=== PATIENT | male | born 1980 | race Caucasian/White ===

== ENCOUNTER 2022-09-18 09:39 | Outpatient (OUT) | payer OTHER, SELFPAY ==
[2022-09-18 22:37] LABS: Thyroid Stimulating Hormone 3.495 uIU/mL (0.358-3.740)
[2022-09-18 23:50] LABS: Free T4 0.79 ng/dL (0.76-1.46)
[2022-09-26 14:15] LABS: Triiodothyronine (T3) 90 ng/dL (71-180)
== END 2022-09-18 09:40 ==
PROVIDERS: PCP Internal Medicine; Visit Provider Internal Medicine
DX: Z00.00 Encounter for general adult medical examination without abnormal findings (principal)
CPT/HCPCS: 36415; 84439; 84443; 84480

== ENCOUNTER 2022-10-15 19:13 | Emergency (ER) | payer OTHER, SELFPAY ==
[2022-10-15 19:20] VITALS: BP 119/86; PULSE 75; RESP 16; TEMP 36.6; O2SAT 98; BMI 28.5
--- NOTE | 2022-10-15 19:41 | ED_ITS ---
HPI - Trauma General Chief Complaint: Extremity Injury, Upper Stated Complaint: nail through finger right hand Time Seen by Provider: 10/15/22 19:39 Source: patient Mode of arrival: walk-in History of Present Illness HPI narrative: accidentally shot a large nail through the middle and ring fingers of the right hand just [employer]IST[employer]. He tried to use pliers to remove the nail without success. His tetanus is not up to date. Related Data Home Medications Medication Instructions Recorded Confirmed amlodipine 5 mg tablet 5 mg PO QDAY 10/15/22 10/15/22 Previous Rx's Medication Instructions Recorded cephalexin 500 mg capsule 500 mg PO QID 7 days #28 caps 10/15/22 ciprofloxacin HCl 500 mg tablet 500 mg PO BID #14 tabs 10/15/22 (Cipro) Allergies Allergy/AdvReac Type Severity Reaction Status Date / Time No Known Drug Allergies Allergy Verified 10/15/22 19:25 PFSH PFS Social History Smoking status: Never smoker Exam Narrative Exam Narrative: Nurses note and vital signs reviewed and patient is not hypoxic. afebrile General: The patient appears well and in no apparent distress. Patient is resting comfortably on cart. GCS = 15. Skin: Warm, dry, no pallor noted. Head: Normocephalic, atraumatic Eyes: PERRLA, EOMI Cardiovascular: normal peripheral perfusion Respiratory: Patient is in no distress, no accessory muscle use, lungs are clear to auscultation, no wheezing, rales or rhonchi Musculoskeletal: nail through the right middle figner and then enters into the radial aspect of the right middle finger and does not exit on the ulnar side. no additional sign of long bone fracture Neurological: A&O x4, normal equal bobbin loose end finder strength, normal finger to nose, normal speech, normal coordination, normal motor, normal sensory. Psychiatric: Cooperative Constitutional Vital Signs - 24 hr 10/15/22 19:20 Temperature 97.9 F Pulse Rate [Monitor] 75 Respiratory Rate 16 Blood Pressure [Left Arm] 119/86 H Pulse Oximetry 98 Oxygen Delivery Method Room Air Course Vital Signs Vital signs: Vital Signs Temperature 97.9 F 10/15/22 19:20 Pulse Rate 75 10/15/22 19:20 Respiratory Rate 16 10/15/22 19:20 Blood Pressure 119/86 H 10/15/22 19:20 Pulse Oximetry 98 10/15/22 19:20 Oxygen Delivery Method Room Air 10/15/22 19:20 Temperature 97.9 F 10/15/22 19:20 Pulse Rate 75 10/15/22 19:20 Respiratory Rate 16 10/15/22 19:20 Blood Pressure 119/86 H 10/15/22 19:20 Pulse Oximetry 98 10/15/22 19:20 Oxygen Delivery Method Room Air 10/15/22 19:20 MDM - Trauma MDM Narrative Medical decision making narrative: patient given oral pain meds and oral antibiotics. Xrays of the right hand obtained. Tetanus updated. I reviewed the xrays and informed the patient of the findings. he elected to have digital block of both fingers before attempted removal. see procedure note above regarding digital block of the right 3rd and 4th fingers I then removed the nail from the patient's fingers using a pair of pliers and he tolerated the procedure well. Follow up xrays obtained. The patient was discharged home with prescriptions for cipro and keflex. he declined offer for pain med prescriptions. Imaging Data xr hand: Radiologist's impression: Patient Name: GERARDO LUGO MRN: [id number] date: 1980 Sex: M Assigned Patient Location: ER Current Patient Location: ER Accession/Order Number: [id number] Exam Date: 10/15/2022 19:58 Report Date: 10/15/2022 20:17 At the request of: TEODORA JIMENEZ Procedure: XR hand RT min 3V IMAGES REVIEWED: XR hand RT min 3V COMPARISON: None available. CLINICAL INDICATION: foreign body right hand/fingers FINDINGS/IMPRESSION: Metallic nail retained foreign body extending transversely through the volar third digit soft tissues at the level of the neck of the third middle phalanx from radial to ulnar as well as extending into the distal aspect of the fourth digit soft tissues, with the distal tip of the metallic nail retained foreign body possibly lodged within the fourth distal phalanx bone. On the lateral view the nail abuts the volar cortex of the neck of the third middle phalanx without radiographic evidence of acute fracture. Electronically authenticated by: ALBERTO DORSEY Date: 10/15/2022 20:17 Discharge Plan Discharge Chief Complaint: Extremity Injury, Upper Clinical Impression: Foreign body finger Patient Disposition: Home, Self-Care Time of Disposition Decision: 21:19 Prescriptions / Home Meds: New ciprofloxacin HCl [Cipro] 500 mg tablet 500 mg PO BID Qty: 14 0RF cephalexin 500 mg capsule 500 mg PO QID 7 Days Qty: 28 0RF No Action amlodipine 5 mg tablet 5 mg PO QDAY Instructions: Soft Tissue Foreign Body (ED) Stand Alone Forms: Portal Instructions Referrals: Brian Skelton DO [Primary Care Provider] - 1 week Procedures ED Nerve Block Nerve Block Nerve Block 1: Additional comments: digital block performed at the base of the right 3rd digit and right 4th digit in order to anesthetize the fingers that I could remove the foreign body. Approximately one mL was injected in each of the four sites, two on the volar surface and two on the palmar surface at the base of the right 3rd finger and the right 4th finger.
--- NOTE | 2022-10-15 19:58 | PC.NURSE ---
patient has puncture injury to right hand 2nd and 3rd finger. patient was using a nail gun and shot a 4 inch nail into lateral side of fingers approx through DIP knuckle and lateral pad of 3rd finger. patient reports no blood. came in 20minutes after it happened. patient denies needs at this time. appears to be uncomfortable. patient medicated with2 percocet oral. aware he is awaiting radiology. no color change to affected fingers, nail nell. normal temperature distal to injury.
[2022-10-15] MEDS: CEPHALEXIN 500 MG CAPSULE PO (20:22)
[2022-10-15] MEDS: ADACEL DIPH,PERTUSS(ACELL),TET VAC/PF 0.5 ML ADULT SYRINGE IM (20:22)
--- NOTE | 2022-10-15 21:00 | XR_ITS ---
The [address] [address] Patient Name: GERARDO LUGO MRN: [id number] date: 1980 Sex: M Assigned Patient Location: ER Current Patient Location: Accession/Order Number: [id number] Exam Date: 10/15/2022 21:26 Report Date: 10/15/2022 21:48 At the request of: TEODORA JIMENEZ Procedure: XR hand RT min 3V XR hand RT min 3V 10/15/2022 9:26 PM EDT CLINICAL INDICATION: Metallic foreign body removal COMPARISON: 10/15/2022 8:01 PM TECHNIQUE: 3 views of the right hand. FINDINGS/IMPRESSION: Interval removal of nail previously seen embedded in the fourth distal phalanx. Small osseous fragments are seen along the radial aspect of the distal phalanx, otherwise the bones are intact. The alignment is anatomic. The joints are maintained. The soft tissues are grossly unremarkable. Electronically authenticated by: APPLE BERMUDEZ Date: 10/15/2022 21:48
[2022-10-15] MEDS: CIPROFLOXACIN HCL 500 MG TABLET PO (21:22)
== END 2022-10-15 21:50 | disposition home or self-care (01) ==
PROVIDERS: Emergency Provider Emergency Medicine; PCP Internal Medicine
DX: S61.242A Puncture wound with foreign body of right middle finger without damage to nail, initial encounter (principal); W29.4XXA Contact with nail gun, initial encounter; Z23 Encounter for immunization
CPT/HCPCS: 64450; 73130; 90471; 90715; 99284

== ENCOUNTER 2024-01-23 10:26 | Outpatient (OUT) | payer OTHER, SELFPAY ==
[2024-01-23 10:55] LABS: Basophils Percent Auto 0.8 % (0.2-2.0); Eosinophils Absolute Auto 0.1 10^3/uL (0.0-0.7); Eosinophils Percent Auto 1.1 % (0.9-7.0); Hemoglobin 13.5 g/dL (14.0-18.0); Immature Granulocytes Abs Auto 0.01 10^3/uL (0.00-0.03); Immature Granulocytes Pct Auto 0.2 % (0.0-0.5); Lymphocytes Absolute Auto 1.4 10^3/uL (1.2-3.8); Lymphocytes Percent Auto 27.1 % (20.5-60.0); Mean Corpuscular HGB Conc 33.8 g/dL (29.9-35.2); Mean Corpuscular Hemoglobin 31.5 pg (25.9-34.0); Mean Corpuscular Volume 93.2 fL (80.0-94.0); Mean Platelet Volume 10.6 fL (9.5-13.5); Monocytes Absolute Auto 0.5 10^3/uL (0.3-0.8); Neutrophils Absolute Auto 3.2 10^3/uL (1.4-6.5); Neutrophils Percent Auto 60.8 % (43.0-75.0); Platelet Count 192 10^3/uL (150-450); Red Blood Count 4.29 10^6/uL (4.70-6.10); Red Cell Distribution Width 12.1 % (11.0-15.0); White Blood Count 5.3 10^3/uL (4.0-11.0)
[2024-01-23 11:03] LABS: Alanine Aminotransferase 45 U/L (16-63); Albumin Globulin Ratio 1.1; Albumin Level 3.8 g/dL (3.4-5.0); Alkaline Phosphatase 86 U/L (46-116); Anion Gap 10.1; Aspartate Amino Transferase 21 U/L (15-37); BUN Creatinine Ratio 17.6; Bilirubin Total 0.5 mg/dL (0.2-1.0); Calcium 9.4 mg/dL (8.5-10.1); Carbon Dioxide 29.1 mmol/L (21.0-32.0); Chloride 101 mmol/L (98-107); Chol HDL Ratio 4.3; Cholesterol 208 mg/dL (<=200); Estimated GFR (African America >60 (>=60 mL/min/1.73m^2); Estimated GFR (Non-African Ame >60 (>=60 mL/min/1.73m^2); Globulin 3.5 g/dL; Glucose 88 mg/dL (74-106); HDL Cholesterol 48 mg/dL (40-60); Potassium 4.2 mmol/L (3.5-5.1); Sodium 136 mmol/L (136-145); Total Protein 7.3 g/dL (6.4-8.2); Triglycerides 215 mg/dL (<=150)
== END 2024-01-23 10:27 | disposition home or self-care (01) ==
LOC: LAB 10:27
PROVIDERS: PCP Internal Medicine; Visit Provider Internal Medicine
DX: Z00.00 Encounter for general adult medical examination without abnormal findings (principal)
CPT/HCPCS: 36415; 80053; 80061; 85025

== ENCOUNTER 2024-02-04 09:57 | Outpatient (OUT) | payer OTHER, SELFPAY | END 2024-02-04 09:58 | disposition home or self-care (01) | LOC: SLEEP 09:57 | PROVIDERS: PCP Internal Medicine; Visit Provider Internal Medicine | DX: G47.33 Obstructive sleep apnea (adult) (pediatric) (principal) | CPT/HCPCS: 95806 ==

== ENCOUNTER 2024-06-03 11:35 | Outpatient (OUT) | payer OTHER, SELFPAY ==
[2024-06-03 11:53] LABS: Basophils Absolute Auto 0.1 10^3/uL (0.0-0.1); Basophils Percent Auto 1.3 % (0.2-2.0); Eosinophils Percent Auto 0.2 % (0.9-7.0); Hematocrit 42.9 % (42.0-54.0); Hemoglobin 14.7 g/dL (14.0-18.0); Lymphocytes Absolute Auto 1.3 10^3/uL (1.2-3.8); Mean Corpuscular HGB Conc 34.3 g/dL (29.9-35.2); Mean Corpuscular Hemoglobin 31.5 pg (25.9-34.0); Mean Corpuscular Volume 92.1 fL (80.0-94.0); Monocytes Absolute Auto 0.4 10^3/uL (0.3-0.8); Monocytes Percent Auto 7.9 % (1.7-12.0); Neutrophils Absolute Auto 2.9 10^3/uL (1.4-6.5); Neutrophils Percent Auto 62.6 % (43.0-75.0); Platelet Count 210 10^3/uL (150-450); Red Blood Count 4.66 10^6/uL (4.70-6.10); Red Cell Distribution Width 11.8 % (11.0-15.0); White Blood Count 4.7 10^3/uL (4.0-11.0)
[2024-06-03 12:50] LABS: Percent Iron Saturation 31.5 %
[2024-06-03 12:54] LABS: Chol HDL Ratio 4.3; Cholesterol 200 mg/dL (<=200); HDL Cholesterol 46 mg/dL (40-60); Triglycerides 218 mg/dL (<=150); VLDL CHOLESTEROL 43.6 mg/dL
[2024-06-04 04:07] LABS: Vitamin B12 496 pg/mL (232-1245)
== END 2024-06-03 11:36 | disposition home or self-care (01) ==
LOC: LAB 11:39
PROVIDERS: PCP Internal Medicine; Visit Provider Internal Medicine
DX: D64.9 Anemia, unspecified (principal); E78.00 Pure hypercholesterolemia, unspecified; R53.83 Other fatigue
CPT/HCPCS: 36415; 80061; 82607; 82728; 83540; 83550; 85025